=== PATIENT | female | born 1960 | race Caucasian/White ===

== ENCOUNTER → 2021-11-08 15:01 | Outpatient (CLI) | payer OTHER, SELFPAY ==
--- NOTE | 2021-11-08 15:05 | DI.RAD.S_ITS ---
PROCEDURE: XR ANKLE RT MIN 3V INDICATIONS: Ankle Injury TECHNIQUE: 3 views of the ankle were acquired. COMPARISON: None. FINDINGS: Bones: There is a mildly displaced intra-articular fracture of the distal fibula. No additional fractures are detected. The talar dome demonstrates no reynaldo abnormality. Soft tissues: Left-sided soft tissue swelling is seen. IMPRESSION: Mildly displaced intra-articular fracture of the distal fibula. Dictated by: Robbi Flores M.D. on 11/08/2021 at 14:51 Approved by: Robbi Flores M.D. on 11/08/2021 at 14:52
== END ==
PROVIDERS: Referring Provider Nurse Practitioner Critical Care Medicine; Visit Provider Nurse Practitioner Critical Care Medicine
DX: S82.831A Other fracture of upper and lower end of right fibula, initial encounter for closed fracture (principal); M25.571 Pain in right ankle and joints of right foot; X58.XXXA Exposure to other specified factors, initial encounter
CPT/HCPCS: 73610